=== PATIENT | male | born 1980 | race Caucasian/White ===

== ENCOUNTER 2017-01-28 09:22 | Emergency (ER) | payer SELFPAY ==
[2017-01-28 09:32] VITALS: BP 143/94
[2017-01-28] MEDS ORDERED: SULF1TAB24 PO (09:41)
--- NOTE | 2017-01-28 09:52 | PHYS DOC ---
Past Medical History Past Medical History: No Pertinent History Past Surgical History: No Surgical History Alcohol Use: Occasionally Drug Use: None Adult General Chief Complaint Chief Complaint: INSECT BITE HPI HPI Patient is a 36 year old male who presents to the emergency department with a skin infection to the right calf. He has multiple sores to bilateral lower legs. 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 He's been scratching them and then noticed that one on the back of his leg was getting worse and seemed to be infected. It got much more red over the past 2 days so he presented to the ED today for treatment. Review of Systems Review of Systems Constitutional: Denies fever or chills [] Respiratory: Denies cough or shortness of breath [] Cardiovascular: No additional information not addressed in HPI [] Integument: See history of present illness Neurologic: Denies headache, focal weakness or sensory changes Physical Exam Physical Exam Constitutional: Well developed, well nourished, no acute distress, non-toxic appearance. [] Cardiovascular:Heart rate regular rhythm, no murmur [] Lungs & Thorax: Bilateral breath sounds clear to auscultation [] Abdomen: Bowel sounds normal, soft, no tenderness, no masses, no pulsatile masses. [] Skin: Patient has a 3 cm by 2 cm area of erythema to the left calf with induration but no fluctuation, there is no drainage noted, there is evidence of scratching to multiple papules covering the patient's bilateral lower legs Extremities: No tenderness, no cyanosis, no clubbing, ROM intact, no edema. [] Neurologic: Alert and oriented X 3, normal motor function, normal sensory function, no focal deficits noted. [] Psychologic: Affect normal, judgement normal, mood normal. [] Current Patient Data Vital Signs Vital Signs Date Time Temp Pulse Resp B/P (MAP) Pulse Ox O2 Delivery O2 Flow Rate FiO2 01/28/17 09:32 98.2 84 18 100 Room Air 98.2 EKG EKG [] Radiology/Procedures Radiology/Procedures [] Course & Med Decision Making Course & Med Decision Making Pertinent Labs and Imaging studies reviewed. (See chart for details) [] 1. Skin infection The patient being placed on Bactrim DS for this infection. He is taking medication as directed and use hot compresses frequently throughout the day. He is to follow-up with his primary in 1 week for a wound recheck or return to the ED if worsening. Dragon Disclaimer Dragon Disclaimer This electronic medical record was generated, in whole or in part, using a voice recognition dictation system. Departure Departure Impression: Primary Impression: Skin infection Disposition: 01 HOME, SELF-CARE Condition: STABLE Patient Instructions: Skin Infections, Abscess, Care After Additional Instructions: Follow-up with your PCP in one week for a wound check or return to the ED if worsening. Scripts Sulfamethoxazole/Trimethoprim (BACTRIM DS TABLET) 1 Each Tablet 1 TAB PO BID, #20 TAB Prov: KAMALJIT IRELAND APRN 01/28/17 KAMALJIT IRELAND APRN Jan 28, 2017 09:52
== END 2017-01-28 09:45 | disposition home or self-care (01) ==
LOC: ER 09:22
DX: L08.9 Local infection of the skin and subcutaneous tissue, unspecified (principal)
CPT/HCPCS: 99283